=== PATIENT | male | born 1995 | race Caucasian/White ===

== ENCOUNTER 2023-04-26 21:27 | Emergency (ER) | payer OTHER, SELFPAY | END 2023-04-26 23:47 | disposition home or self-care (01) | LOC: ERS 21:27 | DX: S80.02XA Contusion of left knee, initial encounter (principal); S20.212A Contusion of left front wall of thorax, initial encounter; V89.2XXA Person injured in unspecified motor-vehicle accident, traffic, initial encounter | CPT/HCPCS: 71045; 72100 ==